=== PATIENT | male | born 1980 | race Two or more races ===

== ENCOUNTER 2016-11-06 01:38 | Emergency (ER) | payer MEDICAID, OTHER ==
[~2016-11-06] VITALS: Ht 170.2 cm; Wt 77.1 kg
[2016-11-06 01:50] VITALS: BP 116/75
== END 2016-11-06 03:34 | disposition home or self-care (01) ==
LOC: ER 01:39
DX: J40 Bronchitis, not specified as acute or chronic (principal); F12.10 Cannabis abuse, uncomplicated